=== PATIENT | male | born 1945 | race Caucasian/White ===

== ENCOUNTER 2018-07-12 07:36 | Observation (INO) | payer MEDICARE ==
[~2018-07-12] VITALS: Ht 170.2 cm; Wt 77.7 kg
--- NOTE | 2018-07-12 08:32 | EKG ---
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
[2018-07-12 08:42] LABS: BASO % 0 % (0-3); EOS % 1 % (0-3); HEMOGLOBIN 12.2 g/dL (13.0-17.5); LYMPH # 0.8 x10^3/uL (1.0-4.8); LYMPH % 15 % (24-48); MEAN CORPUSCULAR HEMOGLOBIN 34 pg (25-35); MEAN CORPUSCULAR HGB CONC 33 g/dL (31-37); MEAN CORPUSCULAR VOLUME 104 fL (79-100); MONO # 0.5 x10^3/uL (0.0-1.1); MONO % 9 % (0-9); NEUT # 4.1 x10^3uL (1.8-7.7); NEUT % 76 % (31-73); PLATELET COUNT 121 x10^3/uL (140-400); RED BLOOD COUNT 3.56 x10^6/uL (4.30-5.70); RED CELL DISTRIBUTION WIDTH 16.1 % (11.5-14.5); WHITE BLOOD COUNT 5.4 x10^3/uL (4.0-11.0)
[2018-07-12 08:48] LABS: CALCIUM 9.2 mg/dL (8.5-10.1); CREATININE 1.1 mg/dL (0.7-1.3); POTASSIUM 4.8 mmol/L (3.5-5.1)
[2018-07-12 08:55] LABS: ALBUMIN 3.3 g/dL (3.4-5.0); ALBUMIN/GLOBULIN RATIO 0.9 (1.0-1.7); TOTAL BILIRUBIN 0.3 mg/dL (0.2-1.0); TOTAL PROTEIN 6.9 g/dL (6.4-8.2)
[2018-07-12] MEDS: IV NORMAL SALINE 1000ML BAG 1,000 ML IV SCH ×2 (10:12→17:30)
[2018-07-12] MEDS ORDERED: MORPHINE SULFATE 2 MG/ML VIAL. IV PRN (10:15)
[2018-07-12] MEDS ORDERED: ONDANSETRON PF 4 MG/2 ML VIAL. IV PRN (10:15)
[2018-07-12 10:40] VITALS: BP 113/67
[2018-07-12] MEDS ORDERED: MULT1TAB52 PO (11:21)
[2018-07-12] MEDS ORDERED: ALFU10TA3 PO (11:21)
[2018-07-12] MEDS ORDERED: ATEN25TA PO (11:21)
[2018-07-12] MEDS ORDERED: OMEP20CA9 PO (11:21)
[2018-07-12] MEDS ORDERED: PRAV10TA2 PO (11:21)
[2018-07-12] MEDS ORDERED: ASPI-630 PO (11:21)
[2018-07-12] MEDS ORDERED: LISI10TA2 PO (11:21)
[2018-07-12] MEDS ORDERED: ASCO500C9 PO (11:21)
--- NOTE | 2018-07-12 11:23 | PDOC2 ---
WILLY FOSTER DIRECTOR APPAREL 07/12/18 1123: CARDIAC CONSULT DATE OF CONSULT Date of Consult DATE: 07/12/18 TIME: 10:55 REASON FOR CONSULT Reason for Consult: Chest pain REFERRING PHYSICIAN Referring Physician: Isiah SOURCE Source: Chart review, Patient HISTORY OF PRESENT ILLNESS HISTORY OF PRESENT ILLNESS This is a pleasant 73 yo male admitted for complains of room spinning. Reports that he woke up early this morning got up and felt the room was spinning. He felt dizzy. He then later had crampy chest pain near the left axilla but no associated diaphoresis, nausea, jaw or arm pain. No SOA. Infact he has been wwalking a mile a day and 400 abd curnches every night without any difficulty, CP nor SOA. He hast HTN, HLP and takes medications regularly. Denies any prior CAD and no COPD. He continues to smoke tobacco. Reports no abdominal pain , and no passing out. Reports no prior VTE or arrhythmias. Upon admission in ED he was noted with impacted ears and was disimpacted. PAST MEDICAL HISTORY Cardiovascular: HTN, Hyperlipidemia, Other (PAT/PVCs) Pulmonary: No pertinent hx CENTRAL NERVOUS SYSTEM: Other (No pertinent history) GI: GERD Heme/Onc: No pertinent hx Hepatobiliary: No pertinent hx Psych: No pertinent hx Musculoskeletal: Osteoarthritis Rheumatologic: No pertinent hx Infectious disease: No pertinent hx ENT: No pertinent hx Renal/: No pertinent hx, Benign prostatic enlarg. Dermatology: Squamous cell PAST SURGICAL HISTORY Past Surgical History: Arthroscopy (Left knee ligament repair), Other (RFA SCC removal) FAMILY HISTORY Family History: Coronary Artery Disease (father), Stroke (mother) SOCIAL HISTORY Smoke: <1 pack per day (50 yrs) ALCOHOL: none Drugs: None Lives: with Family ALLERGIES ALLERGIES: Coded Allergies: No Known Drug Allergies (Unverified , 07/12/18) ROS Review of System 14 point ROS evaluated with pertinent positives noted per HPI PHYSICAL EXAM General: Alert, Oriented X3, Cooperative, No acute distress HEENT: Atraumatic, Mucous membr. moist/pink Lungs: Clear to auscultation, Normal air movement Heart: Regular rate (SR), Normal S1, Normal S2, No murmurs Abdomen: Soft, No tenderness Extremities: No cyanosis, No edema Skin: No breakdown, No significant lesion Neuro: Normal speech, Sensation intact Psych/Mental Status: Mental status NL, Mood NL MUSCULOSKELETAL: Osteoarthritic changes both hands VITALS VITALS Vital Signs Date Time Temp Pulse Resp B/P (MAP) Pulse Ox O2 Delivery O2 Flow Rate FiO2 07/12/18 10:00 60 18 97 07/12/18 08:03 97.6 151/75 (100) Room Air 97.6 LABS Lab: Laboratory Tests Test 07/12/18 08:20 White Blood Count 5.4 x10^3/uL (4.0-11.0) Red Blood Count 3.56 x10^6/uL (4.30-5.70) Hemoglobin 12.2 g/dL (13.0-17.5) Hematocrit 37.0 % (39.0-53.0) Mean Corpuscular Volume 104 fL (79-100) Mean Corpuscular Hemoglobin 34 pg (25-35) Mean Corpuscular Hemoglobin Concent 33 g/dL (31-37) Red Cell Distribution Width 16.1 % (11.5-14.5) Platelet Count 121 x10^3/uL (140-400) Neutrophils (%) (Auto) 76 % (31-73) Lymphocytes (%) (Auto) 15 % (24-48) Monocytes (%) (Auto) 9 % (0-9) Eosinophils (%) (Auto) 1 % (0-3) Basophils (%) (Auto) 0 % (0-3) Neutrophils # (Auto) 4.1 x10^3uL (1.8-7.7) Lymphocytes # (Auto) 0.8 x10^3/uL (1.0-4.8) Monocytes # (Auto) 0.5 x10^3/uL (0.0-1.1) Eosinophils # (Auto) 0.0 x10^3/uL (0.0-0.7) Basophils # (Auto) 0.0 x10^3/uL (0.0-0.2) Sodium Level 137 mmol/L (136-145) Potassium Level 4.8 mmol/L (3.5-5.1) Chloride Level 102 mmol/L (98-107) Carbon Dioxide Level 26 mmol/L (21-32) Anion Gap 9 (6-14) Blood Urea Nitrogen 18 mg/dL (8-26) Creatinine 1.1 mg/dL (0.7-1.3) Estimated GFR (Cockcroft-Gault) 66.0 BUN/Creatinine Ratio 16 (6-20) Glucose Level 136 mg/dL (70-99) Calcium Level 9.2 mg/dL (8.5-10.1) Total Bilirubin 0.3 mg/dL (0.2-1.0) Aspartate Amino Transf (AST/SGOT) 27 U/L (15-37) Alanine Aminotransferase (ALT/SGPT) 32 U/L (16-63) Alkaline Phosphatase 79 U/L (46-116) Troponin I Quantitative 0.046 ng/mL (0.000-0.055) Total Protein 6.9 g/dL (6.4-8.2) Albumin 3.3 g/dL (3.4-5.0) Albumin/Globulin Ratio 0.9 (1.0-1.7) ASSESSMENT/PLAN ASSESSMENT/PLAN 1. Atypical CP: likely from anxiety related to vertigo lasting 5 min without associated symptoms with excellent METS 2. Vertigo: likely due to ear impaction which has been disimpacted. 3. HTN: controlled 4. HLP 5. Tobaccoism: 50 pk yr at least Recommendations 1. TTE, TSH, lipids 2. Continue BP/statin regimen. ASA for primary prevention. 3. Smoking cessation 4. Outpt stress test would be a consideration given his cardiac risk factors. Discussed CAD symptoms with pt and spouse. No typical features. If no significant changes to TTE, symptoms and troponin then would anticipate DC this evening Addendum: TTE shows regional WMA with EF at 40-45%. [facility] Wednesday, risks and benefits discussed and agreeable to proceed. KAILA ACOSTA MD 07/13/18 1303: CARDIAC CONSULT ASSESSMENT/PLAN ASSESSMENT/PLAN Patient seen and examined 07/12/18 (late entry). Agree with DIRECTOR MORTGAGE's assessment and plan. Chest pain with atypical features but 2-D echo showed posterior and lateral wall hypokinesis. Agree with cardiac catheterization for definitive evaluation. Risks and benefits were explained and he is agreeable. Vertigo improve after ear disimpaction. Importance of smoking cessation reemphasized. Thank you for your consultation. WILLY FOSTER APRN Jul 12, 2018 11:23 KAILA ACOSTA MD Jul 13, 2018 13:03
[2018-07-12 15:00] VITALS: BP 121/72
--- NOTE | 2018-07-12 16:02 | CARD ---
MR#: [id number] Date of Study: 07/12/2018 Ordering Physician: WILLY FOSTER, Referring Physician: ELVIN PATEL Tech: Cheli Santo RDCS APPROVED REPORT EXAM: Two-dimensional and M-mode echocardiogram with Doppler and color Doppler. Other Information Quality : GoodHR: 65bpm Rhythm : Other INDICATION Chest Pain 2D DIMENSIONS RVDd2.5 (2.9-3.5cm)Left Atrium(2D)3.9 (1.6-4.0cm) IVSd0.8 (0.7-1.1cm)Aortic Root(2D)3.1 (2.0-3.7cm) LVDd6.3 (3.9-5.9cm)LVOT Diameter2.4 (1.8-2.4cm) PWd0.7 (0.7-1.1cm)LVDs5.1 (2.5-4.0cm) FS (%) 18.9 %SV76.5 ml LVEF(%)38.3 (>50%) M-Mode DIMENSIONS Left Atrium(MM)3.98 (2.5-4.0cm)Aortic Root3.61 (2.2-3.7cm) Aortic Valve AoV Peak Javed.115.1cm/sAoV VTI25.6cm AO Peak GR.5.3mmHgLVOT Peak Javed.68.5cm/s AO Mean GR.3mmHgAVA (VMAX)2.58cm2 KATHERYN (VTI)2.60cm2 Mitral Valve MV E Rpydxxui13.7cm/sMV DECEL BHBQ239tb MV A Qodxnavu50.2cm/sE/A Ratio1.4 MV A Idukbbua758rt Pulmonary Valve PV Peak Lbytwnvp62.0cm/s Tricuspid Valve TR P. Gufxmlen531yz/sRAP FAXVZRAK9lzKs TR Peak Gr.10vhLlJPLW16veAp LEFT VENTRICLE The Left Ventricle is mildly dilated. There is normal left ventricular wall thickness. The Ejection F raction is 40-45%. Posterior and lateral wall hypokinesis. RIGHT VENTRICLE The right ventricle is normal size. There is normal right ventricular wall thickness. The right ventr icular systolic function is normal. ATRIA The left atrium size is normal. The right atrium size is normal. The interatrial septum is intact wit h no evidence for an atrial septal defect or patent foramen ovale as noted on 2-D or Doppler imaging. AORTIC VALVE The aortic valve is normal in structure and function. The aortic valve is trileaflet. Doppler and Col or Flow revealed no significant aortic regurgitation. There is no significant aortic valvular stenosi s. MITRAL VALVE The mitral valve is normal in structure and function. There is no evidence of mitral valve prolapse. There is no mitral valve stenosis. Doppler and Color-flow revealed trace to mild mitral regurgitation . TRICUSPID VALVE The tricuspid valve is normal in structure and function. Doppler and Color Flow revealed trace tricus pid regurgitation. There is moderate pulmonary hypertension. The PA pressure was estimated at 46 mmHg . There is no tricuspid valve prolapse or vegetation. PULMONIC VALVE The pulmonary valve is normal in structure and function. Doppler and Color Flow revealed trace pulmon ic valvular regurgitation. There is no pulmonic valvular stenosis. GREAT VESSELS The aortic root is normal in size. The ascending aorta is normal in size. The IVC is normal in size a nd collapses >50% with inspiration. PERICARDIAL EFFUSION There is no evidence of significant pericardial effusion. Critical Notification Critical Value: No <Conclusion> Posterior and lateral wall hypokinesis. The Ejection Fraction is 40-45%. Trace to mild mitral regurgitation. Trace tricuspid regurgitation. The PA pressure was estimated at 46 mmHg. There is no evidence of significant pericardial effusion. Signed by : Philip Watts, Electronically Approved : 07/12/2018 16:00:17
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
[2018-07-12] MEDS ORDERED: DIPH25CA58 PO (17:34)
[2018-07-12 19:20] VITALS: BP 132/74
[2018-07-12] MEDS ORDERED: ATORVASTATIN CALCIUM 10 MG TABLET. PO SCH (21:00)
[2018-07-12] MEDS ORDERED: TAMSULOSIN 0.4 MG CAP.ER.24H. PO SCH (21:00)
[2018-07-12 23:00] VITALS: BP 135/76
--- NOTE | 2018-07-13 01:10 | NUR ---
Pt states he feels mildly dizzy when he lays supine. Pt is sleeping (intermittently) in an upright position.
[2018-07-13] MEDS: IV NORMAL SALINE 1000ML BAG 1,000 ML IV SCH (02:12)
[2018-07-13 03:15] VITALS: BP 127/73
[2018-07-13] MEDS ORDERED: PANTOPRAZOLE 40 MG TABLET.DR. PO SCH (07:30)
[2018-07-13 07:41] VITALS: BP 135/75
[2018-07-13] MEDS ORDERED: IODIXANOL 320 MG/ML 100 ML VIAL. ONE (08:33)
[2018-07-13] MEDS ORDERED: LIDOCAINE 1% Multi-Dose 20 ML VIAL. ONE (08:33)
[2018-07-13] MEDS ORDERED: HEPARIN for ARTERIAL LINE 1,500 ML ONE (08:33)
[2018-07-13] MEDS ORDERED: fentaNYL PF VIAL 100 MCG/2 ML VIAL ONE (08:52)
[2018-07-13] MEDS ORDERED: MIDAZOLAM HCL/PF 2 MG/2 ML VIAL. ONE (08:53)
[2018-07-13] MEDS ORDERED: ATENOLOL 25 MG TABLET. PO SCH (09:00)
[2018-07-13] MEDS ORDERED: IODIXANOL 320 MG/ML 100 ML VIAL. IART ONE (09:00)
[2018-07-13] MEDS ORDERED: LIDOCAINE 2% 20 ML VIAL. IJ ONE (09:00)
[2018-07-13] MEDS ORDERED: fentaNYL PF VIAL 100 MCG/2 ML VIAL IV ONE (09:00)
[2018-07-13] MEDS ORDERED: ASCORBIC ACID 500 MG TABLET PO SCH (09:00)
[2018-07-13] MEDS ORDERED: LISINOPRIL 10 MG TABLET PO SCH (09:00)
[2018-07-13] MEDS ORDERED: ASPIRIN CHEWABLE 81 MG TABLET. PO SCH (09:00)
[2018-07-13] MEDS ORDERED: MULTIVITAMIN with MINERAL TABLET. PO SCH (09:00)
[2018-07-13] MEDS ORDERED: MIDAZOLAM HCL/PF 2 MG/2 ML VIAL. IV ONE (09:00)
--- NOTE | 2018-07-13 09:00 | PDOC ---
Provider Note Provider Note [id number] ELVIN PATEL MD Jul 13, 2018 09:00
--- NOTE | 2018-07-13 09:19 | PDOC ---
MODERATE SEDATION ASSESSMENT RISKS/ALTERNATIVES Risks/Alternatives Risks and alternatives of this type of sedation and procedure discussed with: RISK/ALTERNATIVES: Patient H & P ON CHART H & P H & P on chart and reviewed for co-morbid conditions and appropriate labs. H&P ON CHART: Yes STATUS PREG STATUS ASSESSED: N/A MEDS/ALLERGIES REVIEWED Meds/Allergies Reviewed Medications and Allergies including time and route of recently administered narcotics and sedatives. MEDS/ALLERGIES REVIEWED: Yes ASA RATING ASA RATING: II AIRWAY ASSESSMENT Airway Assessment Airway patency, oral function limitations, presence of caps, crowns, dentures, partials, and ability to extend neck assessed. AIRWAY ASSESSMENT: Yes MALLAMPATI SCORE MALLAMPATI SCORE: II PRE-SEDATION ASSESSMENT PRE-SEDATION ASSESSMENT: Yes NESTOR LAMB MD Jul 13, 2018 09:19
--- NOTE | 2018-07-13 09:22 | HP ---
ADMIT DATE: 07/12/2018 CHIEF COMPLAINT: Dizziness. HISTORY OF PRESENT ILLNESS: A 73-year-old white male, new patient to me, who came in with what sounds like vertiginous type dizziness and had ear wax cleaned out of his ears in the ER, also has had some vague discomfort in the left chest. Echo showed mildly reduced ejection fraction of 40% and troponins were okay and he is going to be taken to the cheesemaking laborer today per Dr. Flores. He normally is followed at the [facility] for all medical problems. PAST MEDICAL HISTORY: No cardiac events. MEDICATIONS: Listed per the chart. ALLERGIES: No allergies are known. No other serious problems. SOCIAL HISTORY: Continues to smoke about a pack a day. Retired, physically active, . FAMILY HISTORY: Unremarkable. REVIEW OF SYSTEMS: No other complaints. OBJECTIVE: ENT: All within normal limits. NECK: No masses, nodes or bruits. LUNGS: Clear. CARDIOVASCULAR: Regular rate. No rub. ABDOMEN: Soft, benign and nontender. EXTREMITIES: Good pedal and radial pulses. No joint or skin lesions. 1 to 2+ clubbing. NEUROLOGIC: Physiologic and nonfocal. ASSESSMENT: 1. Dizziness secondary to vertigo, likely secondary to earwax. 2. Nonspecific chest pain in patient with high risk factors for coronary artery disease, primarily tobacco. PLAN: Cardiac catheterization. ELVIN PATEL MD DR: KARLOS/jt JOB#: [id number] / [id number]
[2018-07-13 09:56] VITALS: BP 115/78
[2018-07-13 10:52] VITALS: BP 119/80
[2018-07-13] MEDS ORDERED: IV NORMAL SALINE 1000ML BAG 1,000 ML IV SCH (11:00)
--- NOTE | 2018-07-13 11:25 | NUR ---
SS following for discharge planning. SS reviewed pt chart. Pt is from home with spouse and currently on room air. [facility] Pt getting cardiac cath today. No discharge needs noted at this time. SS will continue to follow for pending discharge needs.
[2018-07-13] MEDS ORDERED: 0.9 % SODIUM CHLORIDE 10 ML DISP.SYRIN. IV PRN (14:00)
[2018-07-13] MEDS ORDERED: NITROGLYCERIN SUBLINGUAL 0.4 MG BOTTLE OF 25. SL PRN (14:00)
--- NOTE | 2018-07-13 14:05 | PDOC4 ---
OPERATIVE NOTE: Brief cath note. Mild disease in the LAD and RCA. Chronic total occlusion of a moderately small LCX with collaterals from the RCA. Overall intact LV systolic function. Chronic total occlusion with collaterals and good LV systolic function. Continue medical treatment with ASA, beta blockers and a statin. No intervention indicated. Discussed with the patient and his . Full report to follow. NESTOR LAMB MD Jul 13, 2018 14:05
--- NOTE | 2018-07-13 14:19 | CARD ---
MR#: [id number] Date of Study: 07/13/2018 Ordering Physician: WILLY FOSTER, Referring Physician: Pat RODNEY: Loan Denton RTR APPROVED REPORT Procedures Left heart catheterization Selective coronary angiogram Left ventriculogram The patient is a 73-year-old male who was admitted for a single episode of chest discomfort. He had n o significant elevation in troponin. He also did have a mild posterior abnormality on echocardiogram. In this setting cardiac catheterization was recommended. Risks and benefits were discussed with the patient. He agreed to proceed. After informed consent was obtained the patient was brought to the heart catheterization lab. The are a of the right femoral artery was prepared the usual manner with Betadine, sterile draping and local anesthetic. An 18-gauge needle was used to enter the right femoral artery, a wire placed and a 6 Fren ch sheath placed over the wire. A 6 Nauruan JL4 catheter was advanced to the ascending aorta and used to engage the left coronary system. Sequential injections in various views were obtained. A 6F Willia ms right diagnostic catheter was advanced to the ascending aorta. It was used to engage the right cor onary artery and sequential injections in various views were obtained. A pigtail catheter was advance d to the ascending aorta and then the left ventricle. A 30 JENSEN left ventricular gram was performed. Pullback pressures were measured. The catheter was removed from the patient. The sheath was removed f rom the patient and sealed with an Angio-Seal product. There were no complications. Findings. Hemodynamics. LV pressure 130/16, aortic root pressure 128/62. Coronaries. Left main. The left main was a normal appearing vessel with no lesions. Left anterior descending. The LAD was a moderately large vessel with normal distribution. It had a mi d 35% lesion. Left circumflex. The left circumflex is a moderately small vessel. It had a proximal chronic occlusio n with a second area of occlusion midway down the vessel. Distally the vessel filled with collaterals from the right coronary artery. Right coronary artery. The right coronary was a large dominant vessel. It had a proximal 20% lesion a nd a mid 20% lesion. Distally it provided collaterals to the left circumflex vessel. Left ventriculogram. The left ventricle with had overall normal LV systolic function with an ejection fraction of 55%. <Conclusion> Total chronic occlusion of the left circumflex with collateralization from the right coronary artery. Mild to moderate disease with no significant lesions in the LAD and the left circumflex right coronar y artery. Overall intact LV systolic function with an ejection fraction of 55%. Signed by : Alfredo Vasquez MD Electronically Approved : 07/13/2018 14:17:43
[2018-07-13 14:57] VITALS: BP 137/76
[2018-07-13] MEDS ORDERED: CARV3.1210 PO (16:17)
[2018-07-13] MEDS ORDERED: NITR0.4T SL (16:17)
[2018-07-13] MEDS ORDERED: ATOR10TA60 PO (16:17)
--- NOTE | 2018-07-13 17:45 | DS ---
DATE OF DISCHARGE: 07/13/2018 HOSPITAL SUMMARY: A 73-year-old white male with a history of chronic tobacco use, hyperlipidemia and mild hypertension who is followed at the [facility]. He came to the ER because of some vertiginous dizziness and had earwax removed and felt better, but also had some atypical left-sided chest pain recently. Chest x-ray was clear. Cardiac enzymes and all labs were unremarkable. He was taken to the slab polisher by Dr. Flores and found to have some mild coronary artery disease and occlusion of some small vessels, but nothing that required any stenting and medical therapy was recommended. He is comfortable to be followed as an outpatient at this point. FINAL DIAGNOSES: 1. Chest pain secondary to coronary artery disease. 2. Dizziness secondary to cerumen impaction. OPERATIONS AND PROCEDURES: Cardiac catheterization. COMPLICATIONS: None. CONSULTATION: Dr. Flores. DISPOSITION: He was switched from atenolol to carvedilol 6.25 mg twice a day, increase his atorvastatin to 20 mg daily, continue low dose aspirin daily. Complete tobacco avoidance encouraged. ACTIVITY: As tolerated. FOLLOWUP: With Dr. Patel in Cardiology in 1-2 weeks and the [facility] as scheduled. PROGNOSIS: Guarded. ELVIN PATEL MD DR: KARLOS/jt JOB#: [id number] / [id number]
[2018-07-14] MEDS ORDERED: CARVEDILOL 3.125 MG TABLET. PO SCH (08:00)
== END 2018-07-13 18:29 | disposition home or self-care (01) ==
LOC: ER 07:36 → 2 SOUTH 09:18
PROVIDERS: ADMIT Family Medicine; ATTEND Family Medicine
DX: I25.10 Atherosclerotic heart disease of native coronary artery without angina pectoris (principal); H61.23 Impacted cerumen, bilateral; R42 Dizziness and giddiness; E78.5 Hyperlipidemia, unspecified; I10 Essential (primary) hypertension; K21.9 Gastro-esophageal reflux disease without esophagitis; F41.9 Anxiety disorder, unspecified; F17.210 Nicotine dependence, cigarettes, uncomplicated; Z82.3 Family history of stroke; Z82.49 Family history of ischemic heart disease and other diseases of the circulatory system
CPT/HCPCS: 36415; 80053; 80061; 84443; 84484; 85025; 93005; 93306; 93458; 96374; 96375; 99284; C1769; C1771; C1892; G0269; G0378; J1644; J2001; J2250; J3010; 99152; 99153; G0379

== ENCOUNTER → 2018-10-05 | Outpatient (CLI) | payer MEDICARE ==
[~2018-10-05] MED LIST: ALFU10TA3 PO; ASCO500C9 PO; ASPI-630 PO; ATEN25TA PO; ATOR10TA60 PO; CARV3.1210 PO; DIPH25CA58 PO; LISI10TA2 PO; MULT1TAB52 PO; NITR0.4T SL; OMEP20CA10 PO; PRAV10TA2 PO
--- NOTE | 2018-10-05 11:30 | RAD ---
MR#: [id number] Date of Study: 10/05/2018 Ordering Physician: KAILA ACOSTA, Referring Physician: KAILA ACOSTA, Tech: Duglas Chen MBA, RDMS, RVT, RDCS, RTR APPROVED REPORT Patient Location: OUT-PATIENT Indications Rest Pain:Bilaterally VELOCITY AND DOPPLER WAVEFORM ANALYSIS RIGHT cm/secWaveformSeverity LEFT cm/secWaveform Severity dCFA 136.0TriphasicdCFA 128.0Triphasic Prof Fem Art. 81.0TriphasicProf Fem Art. 75.0Triphasic Fem Art Prox. 100.0TriphasicFem Art Prox. 101.0Triphasic Fem Art Mid. 100.0TriphasicFem Art Mid. 98.0Triphasic Fem Art Dist. 100.0TriphasicFem Art Dist. 77.0Triphasic Pop Art(Fossa) 48.0TriphasicPop Art(AK) 73.0Triphasic BUSINESS OFFICE TECHNICIAN Prox. 76.0TriphasicPTA Prox. 111.0Triphasic BUSINESS OFFICE TECHNICIAN Dist. 76.0TriphasicPTA Dist. 60.0Triphasic Per Art Mid. 59.0TriphasicPer Art Mid. 59.0Triphasic CARLOS Prox. 65.0TriphasicATA Prox. 101.0Triphasic DPA 77TriphasicDPA 104Triphasic Findings Grayscale images of the bilateral lower extremity arterial vessels reveal mild diffuse atherosclerosi s in the common femoral and below-knee vessels and moderate diffuse atherosclerosis in the bilateral superficial femoral arteries. Nonetheless, velocities and spectral waveforms are triphasic throughout the arterial course in no high flow velocities or severe stenosis is identified. There is three-vess el runoff below the knee. Critical Notification Critical Value: No <Conclusion> No significant lower extremity arterial disease bilaterally. Moderate atherosclerosis noted. Signed by : Shalom Vences, Electronically Approved : 10/05/2018 11:30:20
== END | disposition home or self-care (01) ==
LOC: US 09:00
PROVIDERS: ATTEND Internal Medicine Cardiovascular Disease
DX: I70.293 Other atherosclerosis of native arteries of extremities, bilateral legs (principal)
CPT/HCPCS: 93925

== ENCOUNTER → 2020-01-29 | Outpatient (CLI) | payer MEDICARE ==
[~2020-01-29] MED LIST changes: -ALFU10TA3 PO; +ALFU10TA4 PO; +MULT-445 PO; -MULT1TAB52 PO; -NITR0.4T SL; +NITR0.4T24 SL; -OMEP20CA10 PO; +OMEP20CA16 PO
--- NOTE | 2020-01-29 16:35 | CARD ---
MR#: [id number] Date of Study: 01/29/2020 Ordering Physician: KAILA ACOSTA, Referring Physician: KAILA ACOSTA Tech: Leny Gibbons ROXIE APPROVED REPORT EXAM: Two-dimensional and M-mode echocardiogram with Doppler and color Doppler. Other Information Quality : Good INDICATION Cardiac Disease: CAD 2D DIMENSIONS RVDd2.5 (2.9-3.5cm)Left Atrium(2D)3.9 (1.6-4.0cm) IVSd0.7 (0.7-1.1cm)Aortic Root(2D)3.0 (2.0-3.7cm) LVDd6.7 (3.9-5.9cm)LVOT Diameter2.4 (1.8-2.4cm) PWd0.7 (0.7-1.1cm)LVDs5.6 (2.5-4.0cm) FS (%) 16.2 %SV76.8 ml Aortic Valve AoV Peak Javed.116.6cm/sAoV VTI23.0cm AO Peak GR.5.4mmHgLVOT Peak Javed.84.7cm/s AO Mean GR.3mmHgAVA (VMAX)3.41cm2 KATHERYN (VTI)3.80cm2 Mitral Valve MV E Baggmrom01.9cm/sMV DECEL [id number] MV A Nrflhrmy09.2cm/sE/A Ratio0.7 Tricuspid Valve TR P. Cvtjmqkt013ng/sRAP [id number] TR Peak Gr.99fzZvAVYG85jbWm Pulmonary Vein S1 Thqmgwci78.1cm/sD2 Zhjpayjz77.9cm/s LEFT VENTRICLE The Left Ventricle is moderately dilated. There is normal left ventricular wall thickness. Left ventr icle systolic function is moderately impaired. The Ejection Fraction is estimated at 35%. There is mo derate hypokinesis in the lateral and mid to basal inferior and posterior mack. Transmitral Doppler flow pattern is Grade I-abnormal relaxation pattern. RIGHT VENTRICLE The right ventricle is normal size. The right ventricular systolic function is normal. ATRIA The left atrium size is normal. The right atrium size is normal. The interatrial septum is intact wit h no evidence for an atrial septal defect or patent foramen ovale as noted on 2-D or Doppler imaging. AORTIC VALVE The aortic valve is calcified but opens well. Doppler and Color Flow revealed no significant aortic r egurgitation. There is no significant aortic valvular stenosis. MITRAL VALVE The mitral valve is mildly thickened but opens well. There is no evidence of mitral valve prolapse. T here is no mitral valve stenosis. Doppler and Color-flow revealed mild mitral regurgitation. TRICUSPID VALVE The tricuspid valve is normal in structure and function. Doppler and Color Flow revealed trace tricus pid regurgitation. The PA pressure was estimated at 29 mmHg. There is no tricuspid valve stenosis. PULMONIC VALVE The pulmonic valve is not well visualized. Doppler and Color Flow revealed mild pulmonic valvular reg urgitation. There is no pulmonic valvular stenosis. GREAT VESSELS The aortic root is normal in size. The ascending aorta is not well seen. The IVC is normal in size an d collapses >50% with inspiration. PERICARDIAL EFFUSION There is no evidence of significant pericardial effusion. Critical Notification Critical Value: No <Conclusion> The Left Ventricle is moderately dilated. Left ventricle systolic function is moderately impaired. The Ejection Fraction is estimated at 35%. There is moderate hypokinesis in the lateral and mid to basal inferior and posterior mack. Doppler and Color Flow revealed no significant aortic regurgitation. There is no significant aortic valvular stenosis. Doppler and Color-flow revealed mild mitral regurgitation. Doppler and Color Flow revealed trace tricuspid regurgitation. The PA pressure was estimated at 29 mmHg. Signed by : Alfredo Vasquez MD Electronically Approved : 01/29/2020 16:35:02
== END | disposition home or self-care (01) ==
LOC: ECHO 12:38
PROVIDERS: ATTEND Internal Medicine Cardiovascular Disease
DX: I08.8 Other rheumatic multiple valve diseases (principal); I25.10 Atherosclerotic heart disease of native coronary artery without angina pectoris
CPT/HCPCS: 93306